=== PATIENT | female | born 1980 | race Two or more races ===

== ENCOUNTER 2023-05-04 10:18 | Emergency (ER) | payer OTHER ==
[~2023-05-04] VITALS: Ht 165.1 cm; Wt 65.8 kg
[2023-05-04] MEDS ORDERED: NEOMYCIN/POLYMYXIN B/HYDROCORT 20 DR/ML BOTTLE OT STA (11:34)
== END 2023-05-04 14:49 | disposition home or self-care (01) ==
LOC: ER 10:19
DX: R20.2 Paresthesia of skin (principal)